=== PATIENT | female | born 1950 | race Caucasian/White ===

== ENCOUNTER 2021-09-07 11:13 | Emergency (ER) | payer MEDICARE ==
[2021-09-07] MEDS ORDERED: CHERRY SYRUP 10 ML UDC PO ONE (12:07)
[2021-09-07] MEDS ORDERED: KETOROLAC 60 MG/2 ML VIAL IM STA (12:07)
[2021-09-07] MEDS ORDERED: DEXAMETHASONE 10 MG/ML VIAL PO STA (12:07)
--- NOTE | 2021-09-07 12:11 | ED Physician Documentation ---
PD HPI BACK PAIN - Stated complaint Stated Complaint: BACK PAIN - Chief complaint Chief Complaint: Back Pain - History obtained from History obtained from: Patient, Family () - History of Present Illness Timing - onset: How many weeks ago (2) Timing - duration: Weeks (2) Timing - details: Abrupt onset, Still present Location: Lower, Right Quality: Pain, Spasm, Sharp, Similar to prior episodes Associated symptoms: No: Fever, Weakness, Numbness, Incontinent of urine, Unable to urinate, Hematuria, Incontinent of stool Improves with: Rest Worsened by: Movement, Twisting, Palpation Contributing factors: Other (started while doing paper work in bed and shifting weight) Similar symptoms before: Diagnosis (chronic back pain) Recently seen: Not recently seen - Additional information Additional information: 71-year-old Nova Monroe has chronic low back pain and over the past 2 to 3 weeks she has developed an increase in her pain that she has been unable to get comfortable from. She states this started when she was laying on her back shifting her weight reading some papers. She has pain that is persistent and worse with movement. She denies any urinary symptoms denies any fever. Review of Systems Constitutional: denies: Fever, Chills, Myalgias Ears: denies: Ear pain Nose: denies: Congestion Throat: denies: Oral lesions / sores Cardiac: denies: Chest pain / pressure Respiratory: denies: Dyspnea, Cough GI: denies: Abdominal Pain, Nausea, Vomiting : reports: Frequency. denies: Dysuria Skin: denies: Rash Musculoskeletal: reports: Back pain. denies: Neck pain, Extremity pain Neurologic: denies: Generalized weakness, Focal weakness, Numbness PD PAST MEDICAL HISTORY - Present Medications Home Medications: Ambulatory Orders Medication Instructions Recorded Confirmed Albuterol Sulfate [Proair 90 mcg IH Q4HR PRN 09/07/21 09/07/21 Digihaler] Cyclobenzaprine [Flexeril] 10 mg PO TID PRN #20 tablet 09/07/21 Omeprazole 40 mg PO DAILY 09/07/21 09/07/21 Oxycodone HCl/Acetaminophen 1 each PO Q6HR PRN 09/07/21 09/07/21 [Oxycodone-Acetaminophen 10-300] Pravastatin [Pravachol] 40 mg PO DAILY 09/07/21 09/07/21 Sertraline HCl 200 mg PO DAILY 09/07/21 09/07/21 Trazodone HCl 100 mg PO DAILY 09/07/21 09/07/21 hydrOXYzine HCL [Hydroxyzine HCl] 25 mg PO BID 09/07/21 09/07/21 - Allergies Allergies/Adverse Reactions: Allergies Allergy/AdvReac Type Severity Reaction Status Date / Time morphine Allergy Itching Verified 09/07/21 11:21 PD ED PE NORMAL - General General: Alert and oriented X 3, No acute distress, Well developed/nourished - HEENT HEENT: Atraumatic, PERRL, EOMI, Other (dry mucous membranes ) - Respiratory Respiratory: No respiratory distress - Abdomen Abdomen: Normal bowel sounds, Soft, Non tender, Non distended, No organomegaly, Other (no tenderness to bimanual palpation of the right kidney) - Back Back: No CVA TTP, No spinal TTP, Other (right paraspinous muscle tenderness to the L3 area. 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 2-12 intact, No motor deficit, No sensory deficit, Normal speech Eye Opening: Spontaneous Motor: Obeys Commands Verbal: Oriented GCS Score: 15 - Psych Psych: Normal mood, Normal affect Results - Vitals Vitals: Vital Signs - 24 hr 09/07/21 09/07/21 11:18 14:00 Temperature 36.4 C L Heart Rate 64 62 Respiratory 16 14 Rate Blood Pressure 116/72 143/90 H O2 Saturation 96 96 Oxygen O2 Source Room air PD MEDICAL DECISION MAKING - ED course Complexity details: reviewed results, re-evaluated patient, considered differential, d/w patient, d/w family ED course: 71-year-old female with acute on chronic back pain appears to have acute exacer bation she does not get relief with dexamethasone and Toradol and she is administered Dilaudid IM with Zofran. I have indicated the patient we are not able to prescribe her further narcotic and have referred her back to her aircraft painter. Departure - Departure Disposition: 01 Home, Self Care Clinical Impression: Back pain Qualifiers: Back pain location: low back pain Chronicity: acute Back pain laterality: right Sciatica presence: with sciatica Sciatica laterality: sciatica of right side Qualified Code(s): M54.41 - Lumbago with sciatica, right side Condition: Stable Instructions: ED Chronic Pain Management, ED Sciatica Follow-Up: Munir Doe DO [Provider Admit Priv/Credential] - Prescriptions: Cyclobenzaprine [Flexeril] 10 mg PO TID PRN #20 tablet PRN Reason: Spasms Comments: Nova, today it looks like you have acute on chronic back pain and we have given you some dexamethasone today that should help over the rest of the day to improve this somewhat. We are not able to give you additional narcotic pain reliever outside of what was given today in the emergency department. Follow-up with your pain management doctor for further pain management. We have given you a follow-up physician in [place] to establish care with. A prescription for a limited amount of Flexeril has been E scribed to the [facility] in [place]. Discharge Date/Time: 09/07/21 14:03
[2021-09-07] MEDS ORDERED: HYDROmorphone 1 MG/ML CARPUJECT IM STA (12:41)
[2021-09-07] MEDS ORDERED: ONDANSETRON ODT 4 MG TABLET TL STA (12:41)
[2021-09-07 14:01] VITALS: BP 143/90
== END 2021-09-07 14:03 | disposition home or self-care (01) ==
LOC: ED 11:13
DX: M54.41 Lumbago with sciatica, right side (principal); G89.29 Other chronic pain
CPT/HCPCS: 96372; 99283; 99284; A9270; J1170; Q0162

== ENCOUNTER 2021-10-03 13:59 | Emergency (ER) | payer MEDICARE ==
[2021-10-03 15:05] VITALS: BP 119/89
[2021-10-03] MEDS ORDERED: HYDROmorphone 1 MG/ML CARPUJECT IM STA (15:11)
[2021-10-03] MEDS ORDERED: KETOROLAC 60 MG/2 ML VIAL IM STA (15:11)
[2021-10-03] MEDS ORDERED: CHERRY SYRUP 10 ML UDC PO ONE (15:12)
[2021-10-03] MEDS ORDERED: DEXAMETHASONE 10 MG/ML VIAL PO STA (15:12)
[2021-10-03] MEDS ORDERED: ONDANSETRON ODT 4 MG TABLET TL STA (15:12)
--- NOTE | 2021-10-03 15:13 | ED Physician Documentation ---
PD HPI BACK PAIN - Stated complaint Stated Complaint: LOWER BACK PAIN - Chief complaint Chief Complaint: Back Pain - History obtained from History obtained from: Patient - Additional information Additional information: 71-year-old woman has chronic back pain related to disc disease. For the last month though she has had a much different back pain. It started in the left lower parathoracic area and she was seen here. Given Toradol and Dilaudid and dexamethasone which did help. That said despite her usual dose of oxycodone which is prescribed by pain management physician and Gilberto Polanco, her pain is not relievable. Its worse with motion. She feels tingling in the left leg. No saddle anesthesia or incontinence. No fevers. There was no injury. Review of Systems Constitutional: denies: Fever, Chills Eyes: reports: Reviewed and negative PD PAST MEDICAL HISTORY - Present Medications Home Medications: Ambulatory Orders Medication Instructions Recorded Confirmed Albuterol Sulfate [Proair 90 mcg IH Q4HR PRN 09/07/21 09/07/21 Digihaler] Cyclobenzaprine [Flexeril] 10 mg PO TID PRN #20 tablet 09/07/21 Omeprazole 40 mg PO DAILY 09/07/21 09/07/21 Oxycodone HCl/Acetaminophen 1 each PO Q6HR PRN 09/07/21 09/07/21 [Oxycodone-Acetaminophen 10-300] Pravastatin [Pravachol] 40 mg PO DAILY 09/07/21 09/07/21 Sertraline HCl 200 mg PO DAILY 09/07/21 09/07/21 Trazodone HCl 100 mg PO DAILY 09/07/21 09/07/21 hydrOXYzine HCL [Hydroxyzine HCl] 25 mg PO BID 09/07/21 09/07/21 predniSONE [Deltasone] 20 mg PO [id number] #21 tab 10/03/21 - Allergies Allergies/Adverse Reactions: Allergies Allergy/AdvReac Type Severity Reaction Status Date / Time morphine Allergy Itching Verified 10/03/21 14:04 PD ED PE NORMAL - Vitals Vital signs reviewed: Yes - General General: Alert and oriented X 3, No acute distress - Respiratory Respiratory: No respiratory distress, Clear bilaterally - Abdomen Abdomen: Normal bowel sounds, Soft, Non tender - Back Back: Other (She has some tenderness of the left paralumbar muscles. No midline spinal tenderness.) - Extremities Extremities: Other (The patient has equal and normal Achilles and patellar reflexes bilaterally. Normal sensation in all areas of the legs. Patient denies saddle anesthesia. Normal strength in flexion-extension at the ankles, knees, and flexion of the hips.) - Neuro Neuro: Alert and oriented X 3, Normal speech Results - Vitals Vitals: Vital Signs - 24 hr 10/03/21 10/03/21 14:04 15:04 Temperature 36.5 C 36.8 C Heart Rate 100 74 Respiratory 16 20 Rate Blood Pressure 121/69 119/89 H O2 Saturation 98 97 Oxygen O2 Source Room air PD MEDICAL DECISION MAKING - ED course ED course: 71-year-old woman with chronic back pain and exacerbation of same. CT showing multilevel degenerative disease with neuroforaminal narrowing at L4-L5 and L5- S1, left at L4-L5 and both sides at L5-S1, both severe as well as spinal stenosis at L2 and L3. She was feeling better after IM Dilaudid dexamethasone Toradol and Zofran here. We will add a steroid taper to her usual regimen. Departure - Departure Disposition: 01 Home, Self Care Clinical Impression: Lumbar radiculopathy Spinal stenosis Qualifiers: Spinal region: lumbosacral Qualified Code(s): M48.07 - Spinal stenosis, lumbosacral region Condition: Good Record reviewed to determine appropriate education?: Yes Instructions: ED Sciatica Follow-Up: Luz Elena Willis MD [Provider Admit Priv/Credential] - Munir Doe DO [Provider Admit Priv/Credential] - [facility] [Provider Group] Prescriptions: predniSONE [Deltasone] 20 mg PO [id number] #21 tab Comments: For primary care I listed several physicians on this form that she could follow- up with. Return for new or worsening symptoms. As discussed it is reasonable for you to follow-up with a spinal specialist as well. My recommendation would be: [facility] [id number], [phone]
--- NOTE | 2021-10-03 16:13 | CT Report ---
PROCEDURE: LUMBAR SPINE WO INDICATIONS: back pain TECHNIQUE: Noncontrast 3 mm thick sections acquired from the T12 level to the sacrum. Sagittal and coronal refo rmats were constructed. For radiation dose reduction, the following was used: automated exposure co ntrol, adjustment of mA and/or kV according to patient size. COMPARISON: None. FINDINGS: Image quality: Excellent. Bones: There is mild, approximate 4 mm of L5-S1 anterolisthesis secondary to facet hypertrophy. Ther e is trace, approximately 2 mm of L2-L3 and L3-L4 anterolisthesis secondary to facet hypertrophy. No acute vertebral body compression fractures. No suspicious lytic or blastic bony lesions. Central sp inal caliber is of normal overall caliber. No pars defects. T12-L1: Loss of disc height. Mild, diffuse disc bulge. Mild bilateral facet hypertrophy. No central stenosis. No neural foraminal narrowing. No neural compression. L1-L2: Loss of disc height. Mild, diffuse disc bulge. Mild bilateral facet hypertrophy. Mild bilat eral neural foraminal narrowing. No neural compression. L2-L3: Loss of disc height. Moderate, diffuse disc bulge. Moderate bilateral facet hypertrophy. Mo derate ligamentum flavum hypertrophy. Moderate to severe narrowing of the central canal. Moderate rig ht and mild left neural foraminal narrowing. No neural compression. L3-L4: Loss of disc height. Moderate, diffuse disc bulge. Moderate bilateral facet hypertrophy. Mod erate narrowing of the central canal. Moderate right and mild left neural foraminal narrowing. No debbie ral compression. L4-L5: Loss of disc height. Moderate, diffuse disc bulge. Moderate bilateral facet hypertrophy. Mod erate narrowing of the central canal. Moderate right and severe left neural foraminal narrowing with compression of the exiting left L4 nerve root. L5-S1: Loss of disc height. Mild, diffuse disc bulge. Severe bilateral facet hypertrophy. Moderate narrowing of the central canal. Severe bilateral neural foraminal narrowing with compression of the e xiting L5 nerve roots. Soft tissues: No retroperitoneal masses or hematomas. 3.2 cm right renal cyst. Visualized aorta is normal in caliber. Scattered atherosclerotic calcifications are noted in the visualized abdominal and pelvic vasculature. IMPRESSION: 1. Multilevel degenerative disc disease. 2. Multilevel facet arthropathy. 3. Moderate to severe L2-L3 central canal narrowing. 4. Severe left L4-L5 neural foraminal narrowing with compression of the exiting left L4 nerve root. S evere bilateral L5-S1 neural foraminal narrowing with compression of the exiting bilateral L5 nerve r oots. 5. No compression fracture. 6. Grade 1 L5-S1 degenerative spondylolisthesis. Reviewed by: Caroline Rivas MD, PhD on 10/03/2021 4:12 PM PDT Approved by: Caroline Rivas MD, PhD on 10/03/2021 4:12 PM PDT Station ID: [id number]
== END 2021-10-03 16:42 | disposition home or self-care (01) ==
LOC: ED 13:59
DX: M54.16 Radiculopathy, lumbar region (principal); M48.061 Spinal stenosis, lumbar region without neurogenic claudication
CPT/HCPCS: 72131; 96372; 99284; A9270; J1170; Q0162

== ENCOUNTER 2022-09-22 15:21 | Outpatient (CLI) | payer MEDICARE ==
--- NOTE | 2022-09-22 16:46 | XRAY Report ---
PROCEDURE: Knee 4 View LT INDICATIONS: KNEE PAIN,LEFT TECHNIQUE: 4 views of the left knee(s) were acquired. COMPARISON: None. FINDINGS: Bones: No fractures or dislocations. No suspicious bony lesions. Mild tricompartmental periarticu lar osteophyte formation. Soft tissues: No knee joint effusion. No suspicious soft tissue calcifications or masses. IMPRESSION: Osteoarthritis. No acute fracture. No osseous lesion. If symptoms and/or clinical suspicion for patho logy continue, further assessment with repeat plain films, or advanced imaging (e.g., CT, MRI, or bon e scan) is recommended for further assessment.. Reviewed by: Panchito Max MD on 09/22/2022 4:45 PM PDT Approved by: Panchito Max MD on 09/22/2022 4:45 PM PDT Station ID: [id number]
--- NOTE | 2022-09-22 16:48 | XRAY Report ---
PROCEDURE: Shoulder 2 View LT INDICATIONS: SHOULDER PAIN,LEFT TECHNIQUE: 3 views of the shoulder were acquired. COMPARISON: None. FINDINGS: Bones: No fractures or dislocations. No suspicious bony lesions. Visualized ribs appear intact. Periarticular osteophyte formation at the acromioclavicular and glenohumeral joints. Soft tissues: No suspicious soft tissue calcifications. IMPRESSION: Osteoarthritis. No acute fracture. No osseous lesion. If symptoms and/or clinical suspici on for pathology continue, further assessment with repeat plain films, or advanced imaging (e.g., CT, MRI, or bone scan) is recommended for further assessment. Reviewed by: Panchito Max MD on 09/22/2022 4:46 PM PDT Approved by: Panchito Max MD on 09/22/2022 4:46 PM PDT Station ID: [id number]
--- NOTE | 2022-09-22 18:12 | XRAY Report ---
PROCEDURE: Lumbar Spine 2 View INDICATIONS: DJD,LUMBAR SPINE TECHNIQUE: 3 views of the lumbar spine were acquired. COMPARISON: None. FINDINGS: Bones: 5 [id number] vertebrae are present. Remote L2 and L3 laminectomy. Advanced multilevel fa cet arthropathy. Suspect canal stenosis at L3-L4 and L4-L5. Also suspect foraminal narrowing, particu larly at L4-L5. Multilevel degenerative disc disease. No vertebral body compression fractures. No hicks spicious bony lesions. Soft tissues: Overlying bowel gas pattern is normal. No suspicious soft tissue calcifications. IMPRESSION: Remote surgical decompression. Extensive multilevel facet arthropathy. Suspect canal ilir nosis at L3-L4 and L4-L5. Also suspect foraminal narrowing. Comment: Lumbar spine MRI may be helpful. Reviewed by: Pacheco Magana MD on 09/22/2022 6:11 PM PDT Approved by: Pacheco Magana MD on 09/22/2022 6:11 PM PDT Station ID: [id number]
--- NOTE | 2022-09-22 18:15 | XRAY Report ---
PROCEDURE: Hip w/Pelvis 2-3V RT INDICATIONS: HIP PAIN,RIGHT TECHNIQUE: AP pelvis with lateral view(s) of the right hip(s). COMPARISON: None. FINDINGS: Bones: No fractures or dislocations. No suspicious bony lesions. There is heterotopic bone subjac ent to the greater trochanter suggesting remote trauma. Mild bilateral hip degenerative change. Lower lumbar degenerative change. Soft tissues: No suspicious soft tissue calcifications or masses. IMPRESSION: Lower lumbar degenerative change, mild bilateral hip degenerative change. Reviewed by: Pacheco Magana MD on 09/22/2022 6:14 PM PDT Approved by: Pacheco Magana MD on 09/22/2022 6:14 PM PDT Station ID: [id number]
== END 2022-09-22 15:22 | disposition home or self-care (01) ==
LOC: DI 15:21
PROVIDERS: ATTEND Nurse Practitioner
DX: M17.12 Unilateral primary osteoarthritis, left knee (principal); M19.012 Primary osteoarthritis, left shoulder; M47.816 Spondylosis without myelopathy or radiculopathy, lumbar region; M16.0 Bilateral primary osteoarthritis of hip

== ENCOUNTER 2022-10-29 08:00 | Outpatient (CLI) | payer MEDICARE ==
--- NOTE | 2022-10-30 10:56 | XRAY Report ---
PROCEDURE: Knee 1 View BILAT INDICATIONS: LEFT KNEE PAIN BILAT AP FOR COMPARRISON TECHNIQUE: AP standing views of the bilateral knee(s) were acquired. COMPARISON: None. FINDINGS: Bones: No fractures or dislocations. Right worse than left bilateral medial femoral tibial compartme nt joint space narrowing, subchondral sclerosis and marginal osteophyte formation is seen. No suspic ious bony lesions. Soft tissues: No suspicious soft tissue calcifications or masses. IMPRESSION: Right worse than left bilateral medial femoral tibial compartment osteoarthritis. No fracture or disl ocation. No gross soft tissue abnormalities. Reviewed by: Jamie Rincon MD on 10/30/2022 10:55 AM PDT Approved by: Jamie Rincon MD on 10/30/2022 10:55 AM PDT Station ID: [id number]
== END 2022-10-29 23:59 | disposition home or self-care (01) ==
LOC: DI.WOS 08:00
PROVIDERS: ATTEND Orthopaedic Surgery
DX: M17.0 Bilateral primary osteoarthritis of knee (principal)

== ENCOUNTER 2022-12-07 11:23 | Outpatient (CLI) | payer MEDICARE ==
--- NOTE | 2022-12-07 16:46 | XRAY Report ---
PROCEDURE: Hip w/Pelvis 2-3V RT INDICATIONS: PX IN RT HIP TECHNIQUE: AP pelvis with lateral view(s) of the right hip(s). COMPARISON: X-ray pelvis 09/22/2022 FINDINGS: Bones: No fractures or dislocations. No suspicious bony lesions. Moderate bilateral degenerative hip joint space narrowing. No erosions. Degenerative changes with osteophytes are present within the lower lumbar spine. Greater trochanter osteophytes are present within the femurs bilaterally. Soft tissues: No suspicious soft tissue calcifications or masses. IMPRESSION: Bilateral hip and lower lumbar spine arthritic change. Reviewed by: Chikis Calderón MD on 12/07/2022 4:45 PM PDT Approved by: Chikis Calderón MD on 12/07/2022 4:45 PM PDT Station ID: [id number]
== END 2022-12-07 11:24 | disposition home or self-care (01) ==
LOC: DI 11:23
PROVIDERS: ATTEND Nurse Practitioner
DX: M16.0 Bilateral primary osteoarthritis of hip (principal); M47.816 Spondylosis without myelopathy or radiculopathy, lumbar region

== ENCOUNTER 2022-12-10 14:51 | Outpatient (CLI) | payer MEDICARE ==
[2022-12-10 15:26] LABS: CREATININE 0.7 mg/dL (0.6-1.3)
--- NOTE | 2022-12-11 16:13 | MRI Report ---
PROCEDURE: LUMBAR SPINE W/WO INDICATIONS: LUMBAR SPINE DJD CONTRAST: GADAVIST 7.3 ML TECHNIQUE: Noncontrast sagittal T1 spin echo and T2 fast spin echo, coronal T2, sagittal STIR, axial T1 and T2 f ast spin echo through the lumbar spine. After the administration of contrast, sagittal and axial T1 spin echo with fat saturation through the lumbar spine. COMPARISON: Plain films dated 09/22/2022; CT dated 10/01/2021 FINDINGS: Image quality: Excellent. Alignment and curvature: 5 lumbar type vertebral bodies are present by plain film. 8 mm of anterolist hesis of L5 on S1. 2 mm of anterolisthesis of L2 on L3. 3 mm of retrolisthesis of L1 on L2. Marrow: Marrow is of normal overall signal. No acute vertebral body compression fractures. No susp icious marrow enhancement. Moderate reactive signal within the endplates adjacent to the L3-L4 and L 4-L5 intervertebral discs. Mild reactive signal within the remaining lumbar and lower thoracic endpla lyubov. 2-L1 3 laminectomy. Spinal cord: Conus medullaris terminates at the L1 level. Visualized spinal cord demonstrates antoinette l signal, without suspicious enhancement. Paraspinous soft tissues: No paravertebral masses. Moderate STIR signal elevation and enhancement wi thin the posterior paraspinous soft tissues at L2-L3, compatible with post surgical sequelae. No flui d collection. T12-L1: Moderate disc height loss and desiccation. Mild diffuse disc bulge. Mild facet and ligament flavum hypertrophy. Mild epidural lipomatosis. Mild canal stenosis. Mild bilateral foraminal stenosis . L1-L2: Moderate disc height loss and desiccation. Mild diffuse disc bulge. Mild facet and ligament flavum hypertrophy. Mild canal stenosis. Mild left and moderate right foraminal stenosis. L2-L3: Moderate disc height loss and desiccation. Moderate diffuse disc bulge. Mild facet and liga ment flavum hypertrophy. Mild canal stenosis. Moderate left and severe right foraminal stenosis. Righ t L2 nerve root compression. Enhancement within the right lateral recess and neural foramen surroundi ng the right L2 nerve root. L3-L4: Moderate disc height loss and desiccation. Moderate diffuse disc bulge/osteophyte. Mild face t and ligament flavum hypertrophy. Mild epidural lipomatosis. Mild canal stenosis. Moderate bilateral foraminal stenosis L4-L5: Moderate disc height loss and desiccation. Moderate diffuse disc bulge/osteophyte. Mild bila teral facet hypertrophy. Mild canal stenosis. Moderate bilateral foraminal stenosis. L5-S1: Moderate disc height loss and desiccation. Mild diffuse disc bulge. Moderate bilateral facet and ligament flavum hypertrophy. Moderate canal stenosis. Moderate right and severe left foraminal s tenosis. Left L5 nerve root compression. IMPRESSION: 1. Post surgical sequelae. 2. Multilevel degenerative disc and facet disease, in addition to epidural lipomatosis and ligamentum flavum hypertrophy. 3. Multilevel canal stenoses, worst at L5-S1 where there is moderate canal stenosis. 4. Multilevel foraminal stenoses, worst at L2-L3 and L5-S1 where there is associated intraforaminal n erve root compression. 5. Enhancement surrounding the right L2 nerve root, consistent with scarring/granulation tissue. 6. Recommend correlation with clinical symptoms to ascertain relevance of these findings. Reviewed by: Panchito Max MD on 12/11/2022 4:12 PM PDT Approved by: Panchito Max MD on 12/11/2022 4:12 PM PDT Station ID: [id number]
== END 2022-12-10 14:52 | disposition home or self-care (01) ==
LOC: LAB 14:51
PROVIDERS: ATTEND Nurse Practitioner
DX: M47.26 Other spondylosis with radiculopathy, lumbar region (principal); M47.817 Spondylosis without myelopathy or radiculopathy, lumbosacral region; M51.16 Intervertebral disc disorders with radiculopathy, lumbar region; M48.061 Spinal stenosis, lumbar region without neurogenic claudication; M51.37 Other intervertebral disc degeneration, lumbosacral region; M48.07 Spinal stenosis, lumbosacral region; E88.2 Lipomatosis, not elsewhere classified
CPT/HCPCS: 36415; 72158; 82565; A9585